=== PATIENT | female | born 1985 | race American Indian/Alaskan Native ===

== ENCOUNTER 2018-07-18 15:52 | Emergency (ER) | payer OTHER ==
[2018-07-18 15:52] VITALS: BMI 46.0
[2018-07-18 16:18] VITALS: RESP 20; O2SAT 98
--- NOTE | 2018-07-18 16:43 | C.PDOC ---
History Of Present Illness 33 year old female presents to ED with complaint of back pain for the past month. Patient states that the pain was initially in her tail bone, but for the past week it has radiated into her left leg and to the 4th ad 5th digits of her left foot. She admits to paresthesia of the extremities. She states she saw Dr. Justice on 07/16/2018 and was given gabapentin, ibuprofen, and flexiril. Patient started to notice a little improvement and was scheduled for an MRI on 07/22/18. However, she states the pain worsened and is now a 9/10. She denies any urinary or bowel incontinence, weakness, fever, chills, and diaphoresis. Time Seen by Provider: 07/18/18 16:29 Chief Complaint (Nursing): Lower Extremity Problem/Injury History/Exam Limitations: no limitations Onset/Duration Of Symptoms: Worse Since, Other (1 month) Current Symptoms Are (Timing): Still Present Pain Scale Rating Of: 9 Past Medical History Reviewed: Historical Data, Nursing Documentation, Vital Signs Vital Signs: Last Vital Signs Temp 98.5 F 07/18/18 16:15 Pulse 53 L 07/18/18 16:15 Resp 20 07/18/18 16:15 BP 156/92 H 07/18/18 16:15 Pulse Ox 98 07/18/18 16:15 - Medical History PMH: Asthma, Depression Denies: Diabetes, Hepatitis, HIV, HTN, Seizures, Sexually Transmitted Disease Surgical History: No Surg Hx Denies: Pacemaker - [facility] Procedures ESOPHAGOGASTRODUODENOSCOPY [EGD] W/CLOSED BIOPSY (10/22/14) PSYCHIA INTERV/EVAL NEC (12/15/13) Family History: States: Unknown Family Hx - Social History Hx Tobacco Use: No Hx Alcohol Use: No Hx Substance Use: No - Immunization History Hx Tetanus Toxoid Vaccination: No Hx Influenza Vaccination: No Hx Pneumococcal Vaccination: No Review Of Systems Constitutional: Negative for: Fever, Chills, Sweats, Weakness Genitourinary: Negative for: Incontinence Musculoskeletal: Positive for: Back Pain (lower back ), Leg Pain (left leg ), Foot Pain (left, specifically the 4th and 5th digits ) Neurological: Positive for: Numbness. Negative for: Weakness, Dizziness Physical Exam - Physical Exam Appears: Well, Non-toxic, No Acute Distress Skin: Normal Color, Warm, Dry Head: Atraumatic, Normacephalic Neck: Normal ROM, Supple Chest: Symmetrical, No Deformity Cardiovascular: Rhythm Regular Respiratory: Normal Breath Sounds, No Wheezing Gastrointestinal/Abdominal: Soft, No Tenderness Back: Vertebral Tenderness (sacral area) Extremity: Normal ROM (left leg), No Pedal Edema, Capillary Refill (<2 seconds), No Swelling, Other (neurovascular intact) Extremity: Bilateral: Atraumatic, Normal Color And Temperature, Normal ROM Pulses: Left Dorsalis Pedis: Normal, Right Dorsalis Pedis: Normal Neurological/Psych: Oriented x3, Normal Speech, Normal Cognition, Normal Motor, Normal Sensation ED Course And Treatment O2 Sat by Pulse Oximetry: 98 (in RA) Medical Decision Making Medical Decision Making: Impression: Sciatica Plan: Toradol IM Re-evaluation. Patient feels better. Discussed results and plan with patient who expresses understanding. All questions answered and there is agreement with the plan to discharge home with instructions. Patient stable for discharge. Return if symptoms persist or worsen Disposition Counseled Patient/Family Regarding: Diagnosis, Need For Followup, Rx Given - Disposition Referrals: Sylvester Justice MD [Medical Doctor] - Disposition: HOME/ ROUTINE Disposition Time: 05:30 Condition: IMPROVED Additional Instructions: It is important you keep your appt for MRI on SUNDAY Continue Gabapentin, Ibuprofen, and Flexeril as prescribed Use Lidocaine patches as needed for pain Return to ED if symptoms worsen Prescriptions: Lidocaine 5% [Lidoderm] 1 ea TD DAILY PRN #20 patch PRN Reason: Pain, Moderate (4-7) Instructions: Sciatica (DC) Forms: [facility] (Indonesian), Work Excuse - Clinical Impression Clinical Impression: Sciatica, Back pain - PA / [employer] / Resident Statement MD/DO has reviewed & agrees with the documentation as recorded. (Shonna Benjamin) - Scribe Statement The provider has reviewed the documentation as recorded by the Scribe (Shonna Benjamin) All medical record entries made by the Scribe were at my direction and personally dictated by me. I have reviewed the chart and agree that the record accurately reflects my personal performance of the history, physical exam, medical decision making, and the department course for this patient. I have also personally directed, reviewed, and agree with the discharge instructions and disposition.
--- NOTE | 2018-07-18 16:47 | C.PDOC ---
Time Seen by Provider: 07/18/18 16:29 Chief Complaint (Nursing): Lower Extremity Problem/Injury Past Medical History Vital Signs: Last Vital Signs Temp 98.5 F 07/18/18 16:15 Pulse 53 L 07/18/18 16:15 Resp 20 07/18/18 16:15 BP 156/92 H 07/18/18 16:15 Pulse Ox 98 07/18/18 16:15 - Medical History PMH: Asthma, Depression Denies: Diabetes, Hepatitis, HIV, HTN, Seizures, Sexually Transmitted Disease Surgical History: Denies: Pacemaker - [facility] Procedures ESOPHAGOGASTRODUODENOSCOPY [EGD] W/CLOSED BIOPSY (10/22/14) PSYCHIA INTERV/EVAL NEC (12/15/13) - Social History Hx Tobacco Use: No Hx Alcohol Use: No Hx Substance Use: No - Immunization History Hx Tetanus Toxoid Vaccination: No Hx Influenza Vaccination: No Hx Pneumococcal Vaccination: No ED Course And Treatment O2 Sat by Pulse Oximetry: 98 Disposition - Disposition
[2018-07-18] MEDS ORDERED: Lidocaine 5% Patch TD ONE (16:56)
[2018-07-18] MEDS ORDERED: Lidocaine 5% Patch TD SCH (17:00)
[2018-07-18 17:07] VITALS: BP 153/93; PULSE 98; TEMP 98.6
== END 2018-07-18 17:47 | disposition home or self-care (01) ==
LOC: C.ER 15:52
DX: M54.30 Sciatica, unspecified side (principal); M54.9 Dorsalgia, unspecified
CPT/HCPCS: 96372; 99283; J1885